=== PATIENT | male | born 1985 | race Two or more races ===

== ENCOUNTER 2018-05-14 20:06 | Emergency (ER) | payer MEDICAID ==
[~2018-05-14] VITALS: Ht 180.3 cm; Wt 92.1 kg
[2018-05-14 20:09] VITALS: BP 141/82
== END 2018-05-14 21:54 | disposition home or self-care (01) ==
LOC: ED 21:05
DX: S16.1XXA Strain of muscle, fascia and tendon at neck level, initial encounter (principal); V49.49XA Driver injured in collision with other motor vehicles in traffic accident, initial encounter; Y93.89 Activity, other specified; Y92.89 Other specified places as the place of occurrence of the external cause; Y99.8 Other external cause status
CPT/HCPCS: 72020; 72050; 99283